=== PATIENT | female | born 2000 | race Caucasian/White ===

== ENCOUNTER 2022-11-10 17:11 | Emergency (ER) | payer BC, MEDICAID, SELFPAY ==
[2022-11-10 17:20] VITALS: BP 103/57; PULSE 66; RESP 14; TEMP 37.3; O2SAT 100
[2022-11-10 17:39] VITALS: BP 103/57; PULSE 66; RESP 14; TEMP 37.3; O2SAT 100
--- NOTE | 2022-11-10 17:50 | ED.WOUNDLAC ---
HPI - Wound/Laceration General Chief Complaint: Wound/Laceration Stated Complaint: Laceration to Fingers on Left Hand Source: patient and RN notes reviewed History of Present Illness HPI narrative: [age] year female presents urgent care with complaints lacerations to her left 2nd and 3rd fingers. Patient states this afternoon she was again informed when she cut her fingers on accident. Pt states she passed out after the incident and was surrounded by her friends who caught her and prevented her from falling. Pt states she was only out for a second. Pt states she thinks it is from being dehydrated from working outside today. It is unknown when she last had a tetanus vaccine. Related Data Home Medications Medication Instructions Recorded Confirmed No Home Medications 11/10/22 11/10/22 Allergies Allergy/AdvReac Type Severity Reaction Status Date / Time No Known Allergies Allergy Verified 11/10/22 17:38 Review of Systems Review of Systems: CONSTITUTIONAL: Denies fever, chills, or sweats. EYES: Denies visual changes, redness, or discharge. ENT: Denies otalgia and sore throat CARDIOVASCULAR: Denies chest pain, palpitations, or edema. RESPIRATORY: Denies cough or dyspnea. GASTROINTESTINAL: Denies abdominal pain, nausea, vomiting, or diarrhea. GENITOURINARY: Denies dysuria or hematuria. SKIN: Lacerations MUSCULOSKELETAL: Denies back pain, joint pain, or myalgia. NEUROLOGIC: Denies headache, numbness, or weakness. Pertinent positives per HPI. PMFSH Comments At the time of my signature, I reviewed and agree with the nursing past medical, surgical, social, and family history. There is no relevant family history pertinent to the patient complaint. Exam Narrative: GENERAL: This is a well-nourished, well-developed patient, in no apparent distress. HEAD: normocephalic, atraumatic. EYES: Sclera clear/white. Vision is grossly intact. EARS: External ears normal, auditory canals clear and without drainage. Hearing grossly intact. NECK: Neck supple, non-tender without lymphadenopathy, masses or thyromegaly. CARDIOVASCULAR: Regular rate RESPIRATORY: No respiratory distress SKIN: Left 2nd and 3rd fingers both have 1 cm, linear, lacerations to dorsal fingers, overlying the PIP joints. no bleeding or drainage noted. NEURO: awake, alert, and oriented to person, place and time. There were no obvious focal neurologic abnormalities. EXTREMITIES: No clubbing, cyanosis, or edema. No joint tenderness, effusion, or edema noted. Course Course Level of Care: Express Care Visit Vital Signs Vital signs: Vital Signs Temperature 99.2 F 11/10/22 17:20 Pulse Rate 66 11/10/22 17:20 Respiratory Rate 14 11/10/22 17:20 Blood Pressure 103/57 L 11/10/22 17:20 Pulse Oximetry 100 11/10/22 17:20 Oxygen Delivery Room Air 11/10/22 17:20 Temperature 99.2 F 11/10/22 17:39 Pulse Rate 66 11/10/22 17:39 Respiratory Rate 14 11/10/22 17:39 Blood Pressure 103/57 L 11/10/22 17:39 Pulse Oximetry 100 11/10/22 17:39 Oxygen Delivery Room Air 11/10/22 17:39 reviewed. Procedures Laceration Laceration 1: Date: 11/10/22 Time: 17:55 Site: upper extremity (left 2nd and 3rd fingers) Side (If applicable): left Size (cm): 2 Description: linear Depth: simple, single layer and involves tendon (possibly knicked tendon) Local Anesthetic: none Pre-repair: wound explored and irrigated ====== Skin Level ====== Skin layer closed with: dermabond ====== Subcutaneous Layer ====== ====== Muscle Layer ====== ====== Tendon Layer ====== Dressing: left 2nd finger wound and left 3rd finger wounds were glued with adhesive glue and fingers were baljit taped together and splinted. MDM - Wound/Laceration MDM Narrative Medical decision making narrative: -adhesive works like a bandage; do not use antibiotic onitme
[2022-11-10] MEDS: TETANUS,DIPHTHERIA,AC PERTUSSIS ADULT (0.5 ML) BOOSTRIX IM (17:55)
== END 2022-11-10 18:10 | disposition home or self-care (01) ==
PROVIDERS: Emergency Provider Nurse Practitioner Family
DX: S61.211A Laceration without foreign body of left index finger without damage to nail, initial encounter (principal); Z23 Encounter for immunization; W45.8XXA Other foreign body or object entering through skin, initial encounter
CPT/HCPCS: 12001; 90471; 90715; 99202; G0463